=== PATIENT | female | born 1940 | race Two or more races ===

== ENCOUNTER → 2017-08-21 | Outpatient (CLI) | payer MEDICARE, OTHER ==
[~2017-08-21] VITALS: Ht 154.9 cm; Wt 67.6 kg
[2017-08-21 12:30] LABS: Basophils # (auto) 0 uL; Basophils % (auto) 0.5 % (0.0-2.0); Eosinophils # (auto) 0.1 uL; Eosinophils % (auto) 2.3 % (0.0-7.0); Hematocrit 37.1 % (36.0-46.0); Hemoglobin 12.1 g/dL (12.2-16.2); Lymphocytes # (auto) 1.1 uL; Lymphocytes % (auto) 22.4 % (10.0-50.0); Mean Corpuscular Hemoglobin 31.4 pg (28.0-32.0); Mean Corpuscular Hgb Conc. 32.7 g/dL (32.0-36.0); Mean Platelet Volume 8.1 fL (6.9-10.8); Monocytes # (auto) 0.3 uL; Monocytes % (auto) 6.4 % (0.0-12.0); Neutrophils # (auto) 3.4 uL; Neutrophils % (auto) 68.4 % (37.0-80.0); Nucleated Red Blood Cells % 0.2 %; Platelet Count (auto) 266 10^3/uL (140-450)
[2017-08-21 13:01] LABS: Albumin 3.9 g/dL (3.4-5.0); BUN/Creatinine Ratio 17.1; Bilirubin, Total 0.5 mg/dL (0.2-1.0); Calcium 8.7 mg/dL (8.5-10.1)
[2017-08-21 13:48] LABS: Urine Bilirubin Negative (Negative); Urine Blood TRACE /uL (Negative); Urine Color Yellow (Yellow); Urine Glucose Normal (Normal); Urine Ketone Negative (Negative); Urine Nitrite Negative (Negative); Urine Urobilinogen Normal (Negative); Urine pH 5.5 (5.0-8.0)
== END | disposition home or self-care (01) ==
LOC: Rad HDHVI 09:21
PROVIDERS: ATTEND Internal Medicine Cardiovascular Disease
DX: I10 Essential (primary) hypertension (principal); E78.00 Pure hypercholesterolemia, unspecified; D64.9 Anemia, unspecified; E11.9 Type 2 diabetes mellitus without complications; E03.9 Hypothyroidism, unspecified; E55.9 Vitamin D deficiency, unspecified; D51.9 Vitamin B12 deficiency anemia, unspecified; K74.1 Hepatic sclerosis; N39.0 Urinary tract infection, site not specified
CPT/HCPCS: 36415; 78452; 80053; 80061; 81003; 82306; 82607; 83036; 84439; 84443; 85025; 93017; 93306; 96374; A9500

== ENCOUNTER → 2018-06-15 | Outpatient (CLI) | payer MEDICARE, OTHER ==
[2018-06-15 12:51] LABS: Basophils # (auto) 0 uL; Basophils % (auto) 0.3 % (0.0-2.0); Eosinophils # (auto) 0 uL; Eosinophils % (auto) 0.5 % (0.0-7.0); Hematocrit 38.1 % (36.0-46.0); Hemoglobin 12.8 g/dL (12.2-16.2); Lymphocytes # (auto) 1.2 uL; Lymphocytes % (auto) 12.2 % (10.0-50.0); Mean Corpuscular Hemoglobin 32.8 pg (28.0-32.0); Mean Corpuscular Hgb Conc. 33.6 g/dL (32.0-36.0); Mean Corpuscular Volume 97.7 fL (80.0-100.0); Monocytes # (auto) 0.4 uL; Monocytes % (auto) 4.5 % (0.0-12.0); Neutrophils # (auto) 8.2 uL; Neutrophils % (auto) 82.5 % (37.0-80.0); Nucleated Red Blood Cells % 0.2 %; Platelet Count (auto) 289 10^3/uL (140-450); Red Blood Cells 3.89 10^6/uL (4.0-5.20); Red Cell Distribution Width 13.9 % (11.8-14.3); White Blood Cell 9.9 10^3/uL (4.4-10.8)
[2018-06-15 13:48] LABS: Potassium 4.1 mmol/L (3.5-5.1)
[2018-06-15 13:56] LABS: Calcium 8.7 mg/dL (8.5-10.1)
== END | disposition home or self-care (01) ==
LOC: LAB 09:43
PROVIDERS: ATTEND Internal Medicine Cardiovascular Disease
DX: D64.9 Anemia, unspecified (principal); I10 Essential (primary) hypertension
CPT/HCPCS: 36415; 80048; 85025

== ENCOUNTER → 2019-04-02 | Outpatient (CLI) | payer MEDICARE, OTHER ==
[2019-04-02 12:33] LABS: Basophils # (auto) 0 uL; Basophils % (auto) 0.7 % (0.0-2.0); Eosinophils # (auto) 0.1 uL; Eosinophils % (auto) 1.4 % (0.0-7.0); Hematocrit 36.9 % (36.0-46.0); Hemoglobin 12.5 g/dL (12.2-16.2); Lymphocytes # (auto) 1.1 uL; Lymphocytes % (auto) 19.9 % (10.0-50.0); Mean Corpuscular Hgb Conc. 33.9 g/dL (32.0-36.0); Mean Corpuscular Volume 100.3 fL (80.0-100.0); Monocytes # (auto) 0.4 uL; Monocytes % (auto) 6.3 % (0.0-12.0); Neutrophils % (auto) 71.7 % (37.0-80.0); Platelet Count (auto) 324 10^3/uL (140-450); Red Blood Cells 3.68 10^6/uL (4.0-5.20); Red Cell Distribution Width 13.4 % (11.8-14.3); White Blood Cell 5.6 10^3/uL (4.4-10.8)
[2019-04-02 12:35] LABS: BUN/Creatinine Ratio 15.2; Calcium 9.2 mg/dL (8.5-10.1); Potassium 4.4 mmol/L (3.5-5.1)
[2019-04-02 12:39] LABS: Bilirubin, Total 0.5 mg/dL (0.2-1.0); Total Protein 7.6 g/dL (6.4-8.2)
[2019-04-02 12:41] LABS: Urine Blood Negative /uL (Negative); Urine Specific Gravity 1.009 (1.001-1.035)
[2019-04-02 13:31] LABS: INR < 0.93 (0.9-1.15); Partial Thromboplastin Time 28.5 sec (23.64-32.05)
== END | disposition home or self-care (01) ==
LOC: LAB 10:45
PROVIDERS: ATTEND Internal Medicine Cardiovascular Disease
DX: E03.9 Hypothyroidism, unspecified (principal); N39.0 Urinary tract infection, site not specified; R94.2 Abnormal results of pulmonary function studies; E55.9 Vitamin D deficiency, unspecified; K90.9 Intestinal malabsorption, unspecified; D53.0 Protein deficiency anemia; R79.1 Abnormal coagulation profile; Z79.899 Other long term (current) drug therapy
CPT/HCPCS: 36415; 80053; 80061; 81003; 83036; 84443; 85025; 85302; 85306; 85576; 85610; 85730

== ENCOUNTER 2019-07-03 12:33 | Inpatient (IN) | payer MEDICARE, OTHER ==
[~2019-07-03] VITALS: Ht 165.1 cm; Wt 65.0 kg
--- NOTE | 2019-07-03 12:30 | NUR ---
PT ADMITTED TO FLOOR FROM E.R. PT ORIENTED TO UNIT AND CALL LIGHT. PT REPORTS 8/10 PAIN IN ABDOMEN AND BRIGHT RED, LIQUID STOOL X 2 DAYS. PT ENCOURAGED TO USE CALL LIGHT PRN. CALLED AND LEFT MESSAGE FOR DR ALEMAN, REQUESTING ORDERS. PT IS A DIRECT ADMIT FROM DR BHATTI OFFICE. VITALS:97.5, 02 93, HR 89, BP 149/75 RR 18. PATIENT AND FAMILY PROVIDED MED REQ AND INFO FOR ADMISSION ASSESSMENT. FAMILY AT BEDSIDE.
[2019-07-03] MEDS ORDERED: LISI40TA PO (14:03)
[2019-07-03] MEDS ORDERED: IPRAAER6 IN (14:06)
[2019-07-03] MEDS ORDERED: LEVO112T4 PO (14:06)
[2019-07-03 14:47] VITALS: BP 153/71
--- NOTE | 2019-07-03 15:00 | NUR ---
IV INSERTED RH 22 G, USING STERILE TECHNIQUE, BY CHIKI ECHAVARRIA RN. WILL START FLUIDS.
[2019-07-03] MEDS ORDERED: HYDROmorphone HCL 2 MG/ML VL IV PRN (15:30)
[2019-07-03] MEDS ORDERED: OMNIPAQUE ORAL SOLN 500ml 12mg/ml PO ONE (15:31)
[2019-07-03 15:54] LABS: Basophils # (auto) 0 uL; Basophils % (auto) 0.6 % (0.0-2.0); Eosinophils # (auto) 0 uL; Eosinophils % (auto) 0.5 % (0.0-7.0); Hematocrit 39.5 % (36.0-46.0); Hemoglobin 13.2 g/dL (12.2-16.2); Lymphocytes # (auto) 1.1 uL; Lymphocytes % (auto) 17.3 % (10.0-50.0); Mean Corpuscular Hemoglobin 32.7 pg (28.0-32.0); Mean Corpuscular Hgb Conc. 33.4 g/dL (32.0-36.0); Monocytes # (auto) 0.4 uL; Monocytes % (auto) 6.7 % (0.0-12.0); Neutrophils # (auto) 4.9 uL; Neutrophils % (auto) 74.9 % (37.0-80.0); Nucleated Red Blood Cells % 0.1 %; Platelet Count (auto) 285 10^3/uL (140-450); Red Blood Cells 4.03 10^6/uL (4.0-5.20); Red Cell Distribution Width 13.4 % (11.8-14.3); White Blood Cell 6.5 10^3/uL (4.4-10.8)
[2019-07-03 16:08] LABS: INR 0.96 (0.9-1.15); Partial Thromboplastin Time 28.3 sec (23.64-32.05)
[2019-07-03 16:20] VITALS: BP 150/80
[2019-07-03 16:35] LABS: BUN/Creatinine Ratio 15.2; Calcium 9.1 mg/dL (8.5-10.1); Potassium 4.5 mmol/L (3.5-5.1)
--- NOTE | 2019-07-03 16:44 | NUR ---
ECG DONE, ECG SHOWS SINUS RHYTHM WITH 1ST DEGREE BLOCK, AND OCCASIONAL PVC'S. HR 83 BPM. PATIENT TAKEN DOWNSTAIRS FOR CT, PRN PAIN MEDS GIVEN, WILL CONTINUE TO MONITOR.
[2019-07-03] MEDS: SODIUM CHLORIDE 0.9% 1,000 ML IV SCH (16:48)
[2019-07-03 22:00] VITALS: BP 134/62
[2019-07-04] VITALS (7 sets, daily range): BP systolic 143–154; BP diastolic 70–84
[2019-07-04] MEDS: SODIUM CHLORIDE 0.9% 1,000 ML IV SCH (01:30)
--- NOTE | 2019-07-04 07:35 | NUR ---
Opening Shift Note Assumed care of patient, awake and alert. No S/S of distress, SOB or abdomen pain reported at this time, Instructed on POC and to call for assist PRN, call light within reach, will continue to monitor for changes Q1hr and PRN.
[2019-07-04] MEDS: PANTOPRAZOLE 40 MG TAB PO SCH (10:28)
[2019-07-04] MEDS: IPRATROPIUM BROM 0.5 MG/2.5ML INH SOL NEB SCH ×2 (11:57→18:00)
[2019-07-04 14:55] LABS: Urine WBC None Seen /hpf (0 - 5)
[2019-07-04 15:04] LABS: Urine Bacteria NONE SEEN /hpf (None Seen); Urine Blood TRACE /uL (Negative); Urine Specific Gravity 1.007 (1.001-1.035)
--- NOTE | 2019-07-04 16:25 | NUR ---
GI CONSULT RECALLED LEFT MESSAGE FOR DR Carina FALL RE: GI CONSULT, CONT CARE
--- NOTE | 2019-07-04 18:25 | NUR ---
PAGED RT FOR BREATHING TX PER PT REQUEST, NO CURRENT RESPIRATORY DISTRESS NOTED, CONT CARE
--- NOTE | 2019-07-04 19:26 | NUR ---
Opening Shift Note Assumed care of patient, awake and alert x4. No S/S of distress/SOB or pain. Instructed on POC and to call for assist PRN, will continue to monitor for changes Q1hr and PRN. Call light is within reach, side rails up x2, bed is in lowest position.
--- NOTE | 2019-07-04 19:28 | NUR ---
NEW ORDERS RECEIVED PAGED DR ALEMAN REGARDING RESUMING HOME MEDICATIONS, NEW ORDERS RECEIVED TO RESUME HOME MEDICATIONS AND FOR JACK FOR OB, RBO, ENDORSED TO NIGHT RN
[2019-07-05] MEDS: IPRATROPIUM BROM 0.5 MG/2.5ML INH SOL NEB SCH ×4 (00:33→19:20)
[2019-07-05] MEDS: SODIUM CHLORIDE 0.9% 1,000 ML IV SCH ×4 (03:35→17:30)
[2019-07-05 05:10] VITALS: BP 140/73
[2019-07-05] MEDS: LEVOTHYROXINE SODIUM 112 MCG TAB PO SCH (06:16)
--- NOTE | 2019-07-05 06:52 | NUR ---
Closing Note Patient is resting in bed. No complaints of pain, SOB, or distress. Call light is within reach. Will endorse to dayshift RN.
--- NOTE | 2019-07-05 07:30 | NUR ---
Opening Shift Note Assumed care of patient, awake and alert. No S/S of distress/SOB or pain. Instructed on POC and to call for assist PRN, will continue to monitor for changes Q1hr and PRN. Fall risk precautions in place per protocol.
[2019-07-05 08:00] VITALS: BP 156/71
[2019-07-05 08:30] VITALS: BP 156/71
[2019-07-05] MEDS: PANTOPRAZOLE 40 MG TAB PO SCH (10:30)
[2019-07-05] MEDS: LISINOPRIL 20 MG TAB PO SCH (10:31)
[2019-07-05 12:30] VITALS: BP 147/69
[2019-07-05] MEDS ORDERED: GOLYTELY 4L KIT PO ONE (15:30)
[2019-07-05 15:53] LABS: Basophils # (auto) 0 uL; Basophils % (auto) 0.5 % (0.0-2.0); Eosinophils # (auto) 0.1 uL; Eosinophils % (auto) 1.1 % (0.0-7.0); Hematocrit 35.3 % (36.0-46.0); Hemoglobin 11.7 g/dL (12.2-16.2); Lymphocytes # (auto) 1.1 uL; Lymphocytes % (auto) 17.1 % (10.0-50.0); Mean Corpuscular Hemoglobin 32.6 pg (28.0-32.0); Mean Corpuscular Hgb Conc. 33.1 g/dL (32.0-36.0); Mean Corpuscular Volume 98.4 fL (80.0-100.0); Monocytes # (auto) 0.5 uL; Monocytes % (auto) 8.1 % (0.0-12.0); Neutrophils # (auto) 4.7 uL; Neutrophils % (auto) 73.2 % (37.0-80.0); Platelet Count (auto) 258 10^3/uL (140-450); Red Blood Cells 3.58 10^6/uL (4.0-5.20); White Blood Cell 6.5 10^3/uL (4.4-10.8)
[2019-07-05] MEDS: LEVOFLOXACIN 500 MG TAB PO SCH (16:02)
[2019-07-05] MEDS: metroNIDAZOLE 500 MG TAB PO SCH ×2 (16:02→21:04)
--- NOTE | 2019-07-05 16:50 | NUR ---
FAMILY AT BEDSIDE COLONOSCOPY PRE STARTED, PATIENT PROVIDED INSTRUCTIONS REGARDING GOLYTELY, INFORMED TO NOTIFY STAFF WHEN BOWELS ARE CLEAR, PT AND FAMILY VERBALIZED UNDERSTANDING, CONT CARE
[2019-07-05 17:21] VITALS: BP 147/72
--- NOTE | 2019-07-05 20:10 | NUR ---
RECEIVED PATIENT IN BED, AAOX4. NO DISTRESS NOTED. INTRODUCED MYSELF TO THE PATIENT. ORIENTATION GIVEN. MILD GENERALIZED WEAKNESS NOTED. DENIES ANY SOB. NO PAIN NOTED. POCS DISCUSSED WITH PATIENT AND SHOWED UNDERSTANDING. BED KEPT ON LOWEST POSITION. SIDE RAILS UP. CALL LIGHT/TABLE IN REACH. KEPT COMFORTABLE.
--- NOTE | 2019-07-05 20:43 | NUR ---
PATIENT JUST HAD A BM AND IS CLEAR YELLOW WITH LITTLE SEDIMENTS. ENCOURAGED TO TALE GOLYTELY ORDERED.
[2019-07-05 21:38] VITALS: BP 147/72
[2019-07-06] MEDS: IPRATROPIUM BROM 0.5 MG/2.5ML INH SOL NEB SCH ×4 (00:55→18:41)
[2019-07-06 05:00] VITALS: BP 142/69
[2019-07-06] MEDS: metroNIDAZOLE 500 MG TAB PO SCH ×3 (05:46→21:18)
[2019-07-06] MEDS: SODIUM CHLORIDE 0.9% 1,000 ML IV SCH ×3 (05:46→21:19)
[2019-07-06] MEDS: LEVOTHYROXINE SODIUM 112 MCG TAB PO SCH (05:47)
[2019-07-06 05:58] LABS: Basophils # (auto) 0 uL; Basophils % (auto) 0.4 % (0.0-2.0); Eosinophils # (auto) 0.1 uL; Eosinophils % (auto) 1.9 % (0.0-7.0); Hematocrit 30.5 % (36.0-46.0); Hemoglobin 10.6 g/dL (12.2-16.2); Lymphocytes # (auto) 0.8 uL; Lymphocytes % (auto) 19.1 % (10.0-50.0); Mean Corpuscular Hemoglobin 33.7 pg (28.0-32.0); Mean Corpuscular Hgb Conc. 34.6 g/dL (32.0-36.0); Mean Corpuscular Volume 97.3 fL (80.0-100.0); Monocytes # (auto) 0.4 uL; Monocytes % (auto) 8.4 % (0.0-12.0); Neutrophils % (auto) 70.2 % (37.0-80.0); Nucleated Red Blood Cells % 0.1 %; Platelet Count (auto) 202 10^3/uL (140-450); Red Blood Cells 3.13 10^6/uL (4.0-5.20); Red Cell Distribution Width 13.1 % (11.8-14.3); White Blood Cell 4.2 10^3/uL (4.4-10.8)
[2019-07-06] MEDS ORDERED: GOLYTELY 4L KIT PO ONE (06:00)
--- NOTE | 2019-07-06 06:42 | NUR ---
ON BED, AWAKE. STABLE. NO DISTRESS NOTED. FOR MORE CARE AND MANAGEMENT.
[2019-07-06] MEDS ORDERED: diphenhdrAMINE HCL 50 MG/1 ML VL ONE (08:32)
[2019-07-06] MEDS ORDERED: SODIUM CHLORIDE LOCK 10 ML ONE (08:32)
--- NOTE | 2019-07-06 08:45 | NUR ---
stools still significantly yellow with fine sediments, encourage to keep drinking oral prep
[2019-07-06 10:00] VITALS: BP 153/72
[2019-07-06] MEDS: LEVOFLOXACIN 500 MG TAB PO SCH (10:02)
[2019-07-06] MEDS: PANTOPRAZOLE 40 MG TAB PO SCH (10:02)
[2019-07-06] MEDS: LISINOPRIL 20 MG TAB PO SCH (10:02)
[2019-07-06 11:41] VITALS: BP 132/82
--- NOTE | 2019-07-06 12:07 | NUR ---
OFF UNIT FOR COLONOSCOPY
[2019-07-06] MEDS: fentaNYL CITRATE 100 MCG/2 ML VL ONE ×3 (12:22→12:30)
[2019-07-06] MEDS: MIDAZOLAM HCL 5 MG/ML-1ML VIAL ONE ×3 (12:22→12:30)
--- NOTE | 2019-07-06 13:20 | NUR ---
BACK FROM PROCEDURE. LUNCH TRAY PROVIDED.
[2019-07-06 14:56] VITALS: BP 147/82
[2019-07-06 17:11] VITALS: BP 145/82
--- NOTE | 2019-07-06 20:10 | NUR ---
RECEIVED PATIENT IN BED, AAOX4. NO DISTRESS NOTED. INTRODUCED MYSELF TO THE PATIENT. ORIENTATION GIVEN. MILD GENERALIZED WEAKNESS NOTED. DENIES ANY SOB. NO PAIN NOTED. PATIENT CLAIMED THAT SHE MIGHT GO HOME IN THE AM, PER MD. POCS DISCUSSED WITH PATIENT AND SHOWED UNDERSTANDING. BED KEPT ON LOWEST POSITION. SIDE RAILS UP. CALL LIGHT/TABLE IN REACH. KEPT COMFORTABLE.
[2019-07-06 22:00] VITALS: BP 129/75
--- NOTE | 2019-07-07 01:00 | NUR ---
RT NOTE PT WAS SEEN BY RT FOR HHN TX. PT TOLERATES WELL VIA MASK. NO ADVERSE REACTION NOTED. CONT ORDERED Addendum: 07/07/19 at 0246 by Khloe Olivarez RT Amended: Links added.
[2019-07-07] MEDS: IPRATROPIUM BROM 0.5 MG/2.5ML INH SOL NEB SCH ×3 (01:20→12:00)
[2019-07-07 05:00] VITALS: BP 145/78
[2019-07-07] MEDS: metroNIDAZOLE 500 MG TAB PO SCH ×2 (05:54→14:16)
[2019-07-07] MEDS: LEVOTHYROXINE SODIUM 112 MCG TAB PO SCH (05:54)
--- NOTE | 2019-07-07 06:50 | NUR ---
ON BED, ASLEEP. STABLE. NO DISTRESS NOTED. FOR MORE CARE AND MANAGEMENT.
[2019-07-07 08:22] VITALS: BP 149/75
[2019-07-07] MEDS: LISINOPRIL 20 MG TAB PO SCH (10:09)
[2019-07-07] MEDS: LEVOFLOXACIN 500 MG TAB PO SCH (10:09)
[2019-07-07] MEDS: PANTOPRAZOLE 40 MG TAB PO SCH (10:10)
[2019-07-07] MEDS: SODIUM CHLORIDE 0.9% 1,000 ML IV SCH (10:10)
[2019-07-07 12:28] VITALS: BP 146/80
--- NOTE | 2019-07-07 15:37 | NUR ---
Regular Discharge Please follow up with your primary care physician Your appointment is on . at. Phone number is: Address is: Addendum: 07/07/19 at 1538 by Monica Galaviz RN disregard
--- NOTE | 2019-07-07 15:38 | NUR ---
Discharge instructions given as ordered. Encourage to follow up with Dr. Jenkins and Dr. Myers as instructed. All questions and concerns addressed. Patient verbalized understanding. Medication reconciliation form completed and copy given to patient. IV removed with catheter intact, pressure dressing applied. Patient taken to vehicle via wheelchair with all personal belongings, accompanied by staff and family member. No distress noted at time of departure.
--- NOTE | 2019-07-07 15:43 | NUR ---
CALLED IN PRESCRIPTION FOR FLAGYL 500 MG PO QID X7 DAYS TO PATIENTS PREFERRED PHARMACY PER DR. ALEMAN D/C ORDER SPOKE TO NORMA AT [place] [id number]
== END 2019-07-07 15:40 | disposition home or self-care (01) | DRG 378 ==
LOC: WEST WING 12:33
PROVIDERS: ADMIT Internal Medicine Cardiovascular Disease; ATTEND Internal Medicine Cardiovascular Disease
PROC: 0DBM8ZX Excision of Descending Colon, Via Natural or Artificial Opening Endoscopic, Diagnostic (ICD-10-PCS; principal; 2019-07-06 12:19)
DX: K92.2 Gastrointestinal hemorrhage, unspecified (principal); E87.1 Hypo-osmolality and hyponatremia; E03.9 Hypothyroidism, unspecified; I10 Essential (primary) hypertension; J43.9 Emphysema, unspecified; K52.9 Noninfective gastroenteritis and colitis, unspecified; Z87.891 Personal history of nicotine dependence; Z85.118 Personal history of other malignant neoplasm of bronchus and lung; Z88.2 Allergy status to sulfonamides
CPT/HCPCS: 36415; 45380; 71045; 74176; 80048; 81001; 82270; 85025; 85610; 85730; 86850; 86900; 86901; 93005; 94640; G0378; J2250

== ENCOUNTER → 2019-07-14 | Outpatient (CLI) | payer MEDICARE, OTHER ==
[~2019-07-14] VITALS: Ht 30.5 cm; Wt 0.5 kg
[~2019-07-14] MED LIST: FUROSEMIDE 40 MG/4 ML VIAL IV ONE; FUROSEMIDE 40 MG/4 ML VIAL ONE; IPRAAER6 IN; LEVO112T4 PO; LISI40TA PO; POTASSIUM CHL 10 Meq TABLET PO ONE; POTASSIUM CHL 20 Meq TABLET PO ONE
[2019-07-14 10:26] VITALS: BP 157/74
[2019-07-14 10:50] VITALS: BP 152/73
--- NOTE | 2019-07-14 10:50 | NUR ---
Discharge Instructions See e-MAR for any mediations given with this visit. Patient education given on disease process. Patient verbalized understanding. Previous labs reviewed. Patient discharged in stable condition with after care instructions and follow up appointment. NOTES ADMINISTERED LASIX IVP ALONG WITH P.O. POTASSIUM. PATIENT TOLERATED WELL. NO S/S OF DISTRESS NOTED AT THIS TIME.
== END | disposition home or self-care (01) ==
LOC: CHF HDHVI 10:26
PROVIDERS: ATTEND Internal Medicine Cardiovascular Disease
DX: E87.70 Fluid overload, unspecified (principal); E03.9 Hypothyroidism, unspecified; J43.9 Emphysema, unspecified; K21.9 Gastro-esophageal reflux disease without esophagitis; I10 Essential (primary) hypertension; Z87.891 Personal history of nicotine dependence
CPT/HCPCS: 96374; G0463; J1940

== ENCOUNTER → 2019-08-16 | Outpatient (CLI) | payer MEDICARE, OTHER ==
[~2019-08-16] VITALS: Ht 154.9 cm; Wt 62.1 kg
[~2019-08-16] MED LIST changes: +ADENOSINE 52 MG in GIVE UN-DILUTED 0 ML IV ONE; +ADENOSINE 90 MG/30 ML INJ IV ONE; -FUROSEMIDE 40 MG/4 ML VIAL IV ONE; -FUROSEMIDE 40 MG/4 ML VIAL ONE; -POTASSIUM CHL 10 Meq TABLET PO ONE; -POTASSIUM CHL 20 Meq TABLET PO ONE
== END | disposition home or self-care (01) ==
LOC: Rad HDHVI 12:58
PROVIDERS: ATTEND Internal Medicine Cardiovascular Disease
DX: K92.2 Gastrointestinal hemorrhage, unspecified (principal); K52.9 Noninfective gastroenteritis and colitis, unspecified; R58 Hemorrhage, not elsewhere classified; R60.9 Edema, unspecified; R06.02 Shortness of breath; R10.9 Unspecified abdominal pain; I10 Essential (primary) hypertension; Z79.899 Other long term (current) drug therapy
CPT/HCPCS: 78452; 93005; 96374; 96375; A9500; J0153

== ENCOUNTER → 2020-06-12 | Outpatient (CLI) | payer MEDICARE, OTHER ==
[~2020-06-12] MED LIST changes: -ADENOSINE 52 MG in GIVE UN-DILUTED 0 ML IV ONE; -ADENOSINE 90 MG/30 ML INJ IV ONE; -LISI40TA PO; +LISI40TA11 PO
[2020-06-12 12:24] LABS: Basophils # (auto) 0 10 ^3/uL (0-0.2); Basophils % (auto) 0.6 % (0.0-2.0); Eosinophils # (auto) 0.1 10 ^3/uL (0-0.8); Eosinophils % (auto) 1.7 % (0.0-7.0); Hematocrit 36.1 % (36.0-46.0); Lymphocytes # (auto) 0.9 10 ^3/uL (0.4-5.4); Lymphocytes % (auto) 19.2 % (10.0-50.0); Mean Corpuscular Hgb Conc. 33.2 g/dL (32.0-36.0); Mean Corpuscular Volume 96.4 fL (80.0-100.0); Monocytes # (auto) 0.3 10 ^3/uL (0-1.3); Monocytes % (auto) 7.5 % (0.0-12.0); Neutrophils # (auto) 3.3 10 ^3/uL (1.6-8.6); Nucleated Red Blood Cells % 0.5 %; Platelet Count (auto) 301 10^3/uL (140-450); Red Blood Cells 3.74 10^6/uL (4.0-5.20); Red Cell Distribution Width 14.5 % (11.8-14.3); White Blood Cell 4.6 10^3/uL (4.4-10.8)
[2020-06-12 12:44] LABS: Potassium 4.4 mmol/L (3.5-5.1)
[2020-06-12 12:50] LABS: Free T4 (Free Thyroxine) 1.76 ng/dL (0.89-1.76)
[2020-06-12 12:53] LABS: Albumin 3.7 g/dL (3.4-5.0); Bilirubin, Total 0.5 mg/dL (0.2-1.0); Calcium 9.3 mg/dL (8.5-10.1); Total Protein 6.7 g/dL (6.4-8.2)
== END | disposition home or self-care (01) ==
LOC: Rad HDHVI 08:51
PROVIDERS: ATTEND Internal Medicine Cardiovascular Disease
DX: K57.30 Diverticulosis of large intestine without perforation or abscess without bleeding (principal); J43.9 Emphysema, unspecified; K44.9 Diaphragmatic hernia without obstruction or gangrene; I70.0 Atherosclerosis of aorta; M47.9 Spondylosis, unspecified; I10 Essential (primary) hypertension; D64.9 Anemia, unspecified; D51.3 Other dietary vitamin B12 deficiency anemia; E11.9 Type 2 diabetes mellitus without complications; E55.9 Vitamin D deficiency, unspecified; R00.2 Palpitations; R53.1 Weakness; R30.0 Dysuria; Z90.49 Acquired absence of other specified parts of digestive tract
CPT/HCPCS: 36415; 74176; 80053; 80061; 82306; 82607; 83036; 84439; 84443; 85025

== ENCOUNTER → 2020-06-19 | Outpatient (CLI) | payer MEDICARE, OTHER ==
[2020-06-19 16:01] LABS: Urine Blood Negative /uL (Negative); Urine Specific Gravity 1.007 (1.001-1.035)
== END | disposition home or self-care (01) ==
LOC: Rad HDHVI 14:31
PROVIDERS: ATTEND Internal Medicine Cardiovascular Disease
DX: N39.0 Urinary tract infection, site not specified (principal); R00.2 Palpitations; R07.89 Other chest pain; R06.02 Shortness of breath
CPT/HCPCS: 81003; 93306

== ENCOUNTER → 2020-06-22 | Outpatient (CLI) | payer MEDICARE, OTHER ==
[~2020-06-22] VITALS: Ht 154.9 cm; Wt 61.2 kg
[~2020-06-22] MED LIST changes: +ADENOSINE 51 MG in GIVE UN-DILUTED 0 ML IV ONE; +ADENOSINE 90 MG/30 ML INJ IV ONE
== END | disposition home or self-care (01) ==
LOC: Rad HDHVI 08:35
PROVIDERS: ATTEND Internal Medicine Cardiovascular Disease
DX: I10 Essential (primary) hypertension (principal); E78.5 Hyperlipidemia, unspecified; R06.02 Shortness of breath; R00.2 Palpitations; J44.9 Chronic obstructive pulmonary disease, unspecified
CPT/HCPCS: 78452; 93005; 96374; 96375; A9500; J0153

== ENCOUNTER → 2020-12-28 | Outpatient (CLI) | payer MEDICARE, OTHER ==
[~2020-12-28] MED LIST changes: -ADENOSINE 51 MG in GIVE UN-DILUTED 0 ML IV ONE; -ADENOSINE 90 MG/30 ML INJ IV ONE
[2020-12-28 11:42] LABS: Basophils # (auto) 0 10 ^3/uL (0-0.2); Basophils % (auto) 0.6 % (0.0-2.0); Eosinophils # (auto) 0.1 10 ^3/uL (0-0.8); Eosinophils % (auto) 2.1 % (0.0-7.0); Hematocrit 35.3 % (36.0-46.0); Hemoglobin 12.1 g/dL (12.2-16.2); Lymphocytes # (auto) 1.3 10 ^3/uL (0.4-5.4); Lymphocytes % (auto) 26.8 % (10.0-50.0); Mean Corpuscular Hemoglobin 32.7 pg (28.0-32.0); Mean Corpuscular Hgb Conc. 34.3 g/dL (32.0-36.0); Mean Corpuscular Volume 95.3 fL (80.0-100.0); Monocytes # (auto) 0.4 10 ^3/uL (0-1.3); Monocytes % (auto) 7.4 % (0.0-12.0); Neutrophils # (auto) 3.1 10 ^3/uL (1.6-8.6); Neutrophils % (auto) 63.1 % (37.0-80.0); Nucleated Red Blood Cells % 0.1 %; Platelet Count (auto) 278 10^3/uL (140-450); Red Blood Cells 3.71 10^6/uL (4.0-5.20); Red Cell Distribution Width 13.9 % (11.8-14.3)
[2020-12-28 11:52] LABS: Albumin 3.9 g/dL (3.4-5.0); Calcium 9.2 mg/dL (8.5-10.1); Potassium 4.4 mmol/L (3.5-5.1)
[2020-12-28 11:59] LABS: Bilirubin, Total 0.6 mg/dL (0.2-1.0); Total Protein 6.9 g/dL (6.4-8.2)
[2020-12-28 12:01] LABS: Free T4 (Free Thyroxine) 2.01 ng/dL (0.89-1.76)
== END | disposition home or self-care (01) ==
LOC: LAB 07:59
PROVIDERS: ATTEND Internal Medicine Cardiovascular Disease
DX: D51.3 Other dietary vitamin B12 deficiency anemia (principal); I10 Essential (primary) hypertension; E11.9 Type 2 diabetes mellitus without complications; E55.9 Vitamin D deficiency, unspecified; D64.9 Anemia, unspecified; R00.2 Palpitations; R53.1 Weakness; R30.0 Dysuria
CPT/HCPCS: 36415; 80053; 80061; 82306; 82607; 83036; 84439; 84443; 85025

== ENCOUNTER → 2020-12-29 | Outpatient (CLI) | payer MEDICARE, OTHER ==
[~2020-12-29] MED LIST changes: +IOHEXOL 350 MG/ML 100ML IJ ONE; +READI-CAT 2 (BARIUM SULF)(VANILLA SMOOTHIE) 450ML ONE; +SODIUM CHLORIDE 0.9% 250 ML IV ONE
[2020-12-29 09:05] VITALS: BP 149/65
[2020-12-29 10:00] VITALS: BP 152/75
[2020-12-29 11:44] LABS: Urine Blood Negative /uL (Negative)
== END | disposition home or self-care (01) ==
LOC: Rad HDHVI 08:53
PROVIDERS: ATTEND Internal Medicine Cardiovascular Disease
DX: K55.9 Vascular disorder of intestine, unspecified (principal); N39.0 Urinary tract infection, site not specified; K57.30 Diverticulosis of large intestine without perforation or abscess without bleeding; C34.90 Malignant neoplasm of unspecified part of unspecified bronchus or lung; I10 Essential (primary) hypertension; E11.9 Type 2 diabetes mellitus without complications; E55.9 Vitamin D deficiency, unspecified; D51.3 Other dietary vitamin B12 deficiency anemia; Z90.49 Acquired absence of other specified parts of digestive tract
CPT/HCPCS: 71260; 74177; 81003; 96360; G0463; J7050; Q9967

== ENCOUNTER → 2021-03-30 | Outpatient (CLI) | payer MEDICARE, OTHER ==
[~2021-03-30] MED LIST changes: -IOHEXOL 350 MG/ML 100ML IJ ONE; -READI-CAT 2 (BARIUM SULF)(VANILLA SMOOTHIE) 450ML ONE; -SODIUM CHLORIDE 0.9% 250 ML IV ONE
== END | disposition home or self-care (01) ==
LOC: Rad HDHVI 09:48
PROVIDERS: ATTEND Internal Medicine Cardiovascular Disease
DX: I25.10 Atherosclerotic heart disease of native coronary artery without angina pectoris (principal); I10 Essential (primary) hypertension
CPT/HCPCS: 93925

== ENCOUNTER 2021-07-07 17:15 | Inpatient (IN) | payer MEDICARE, OTHER ==
[~2021-07-07] VITALS: Ht 154.9 cm; Wt 55.3 kg
[2021-07-07 20:05] LABS: Basophils # (auto) 0 10 ^3/uL (0-0.2); Basophils % (auto) 1.1 % (0.0-2.0); Eosinophils # (auto) 0.1 10 ^3/uL (0-0.8); Eosinophils % (auto) 2.5 % (0.0-7.0); Hematocrit 36.4 % (36.0-46.0); Lymphocytes # (auto) 1.2 10 ^3/uL (0.4-5.4); Mean Corpuscular Hemoglobin 32.3 pg (28.0-32.0); Mean Corpuscular Hgb Conc. 33.1 g/dL (32.0-36.0); Mean Corpuscular Volume 97.8 fL (80.0-100.0); Monocytes # (auto) 0.4 10 ^3/uL (0-1.3); Monocytes % (auto) 8.4 % (0.0-12.0); Neutrophils # (auto) 2.8 10 ^3/uL (1.6-8.6); Nucleated Red Blood Cells % 0.1 %; Red Blood Cells 3.73 10^6/uL (4.0-5.20); White Blood Cell 4.6 10^3/uL (4.4-10.8)
[2021-07-07 20:21] LABS: Chloride 103 mmol/L (98-107); Potassium 4.8 mmol/L (3.5-5.1); Sodium 132 mmol/L (136-145)
[2021-07-07 20:26] LABS: Alanine Aminotransferase 18 U/L (13-56); Albumin 3.6 g/dL (3.4-5.0); Anion Gap 6 (5-15); Aspartate Aminotransferase 20 U/L (15-37); BUN/Creatinine Ratio 13.9; Blood Urea Nitrogen 16 mg/dL (7-18); Calcium 8.7 mg/dL (8.5-10.1); Carbon Dioxide 23 mmol/L (21-32); GFR African American 58 mL/min; GFR Non-African American 48 mL/min; Glucose 81 mg/dL (74-106); Magnesium 2.2 mg/dL (1.6-2.6)
[2021-07-07 20:28] LABS: Alkaline Phosphatase 58 U/L (45-117); Bilirubin, Total 0.4 mg/dL (0.2-1.0)
[2021-07-07] MEDS ORDERED: cloNIDine HCL 0.1 MG TAB PO ONE (22:30)
[2021-07-07 22:47] LABS: Urine Bacteria NONE SEEN /hpf (None Seen); Urine Blood Negative /uL (Negative); Urine Specific Gravity 1.008 (1.001-1.035); Urine WBC <1 /hpf (0 - 5)
[2021-07-08] MEDS ORDERED: MORPHINE SULFATE INJECTION 2 MG/ML SYRG IV PRN (01:15)
[2021-07-08] MEDS ORDERED: DOCUSATE SOD 100 MG CAP PO PRN (01:15)
[2021-07-08] MEDS ORDERED: hydrALAZINE HCL 20 MG/ML VL IV PRN (01:15)
[2021-07-08] MEDS ORDERED: ACETAMINOPHEN 325 MG TAB PO PRN (01:15)
[2021-07-08] MEDS ORDERED: D5W/SOD CHLO 0.9% 1,000 ML IV ONE (01:15)
[2021-07-08] MEDS ORDERED: HYDROcodone-ACET 5/325MG TAB PO PRN (01:15)
[2021-07-08] MEDS ORDERED: NITROGLYCERIN 0.4 MG SL TAB SL PRN (01:15)
[2021-07-08] MEDS ORDERED: ONDANSETRON HCL 4 MG/2 ML VIAL IV PRN (01:15)
[2021-07-08 03:59] LABS: Basophils # (auto) 0.1 10 ^3/uL (0-0.2); Basophils % (auto) 0.9 % (0.0-2.0); Eosinophils # (auto) 0.1 10 ^3/uL (0-0.8); Eosinophils % (auto) 2.3 % (0.0-7.0); Hematocrit 35.3 % (36.0-46.0); Hemoglobin 11.8 g/dL (12.2-16.2); Lymphocytes # (auto) 1.3 10 ^3/uL (0.4-5.4); Lymphocytes % (auto) 23.1 % (10.0-50.0); Mean Corpuscular Hemoglobin 32.2 pg (28.0-32.0); Mean Corpuscular Hgb Conc. 33.6 g/dL (32.0-36.0); Mean Corpuscular Volume 95.8 fL (80.0-100.0); Monocytes # (auto) 0.4 10 ^3/uL (0-1.3); Monocytes % (auto) 7.2 % (0.0-12.0); Neutrophils # (auto) 3.7 10 ^3/uL (1.6-8.6); Neutrophils % (auto) 66.5 % (37.0-80.0); Nucleated Red Blood Cells % 0.1 %; Red Blood Cells 3.68 10^6/uL (4.0-5.20); Red Cell Distribution Width 13.9 % (11.8-14.3); White Blood Cell 5.6 10^3/uL (4.4-10.8)
[2021-07-08 04:38] LABS: Albumin 3.8 g/dL (3.4-5.0); Calcium 8.9 mg/dL (8.5-10.1); Potassium 4.4 mmol/L (3.5-5.1)
[2021-07-08 04:42] LABS: BUN/Creatinine Ratio 13.4; Bilirubin, Total 0.6 mg/dL (0.2-1.0)
[2021-07-08] MEDS: FAMOTIDINE (10MG/ML) 2ML VL IV SCH (10:00)
[2021-07-08] MEDS: ZINC SULFATE 220mg CAP or TAB PO SCH (10:00)
[2021-07-08] MEDS ORDERED: ENOXAPARIN SOD 30 MG/0.3 ML SYRINGE SC SCH (10:00)
[2021-07-08] MEDS: LISINOPRIL 20 MG TAB PO SCH (10:01)
[2021-07-08] MEDS: MULTIPLE VITAMIN TAB PO SCH (10:01)
[2021-07-08] MEDS: ASCORBIC ACID 500 MG TAB PO SCH ×2 (10:01→22:31)
[2021-07-08 21:48] VITALS: BP 164/73
[2021-07-08] MEDS ORDERED: FURO20TA3 PO (22:13)
[2021-07-08] MEDS ORDERED: LISI20TA28 PO (22:13)
[2021-07-08] MEDS ORDERED: POTA10TA51 PO (22:13)
[2021-07-08] MEDS ORDERED: DONE1TAB88 PO (22:13)
[2021-07-09 05:00] VITALS: BP 137/62
[2021-07-09 06:41] LABS: Basophils # (auto) 0 10 ^3/uL (0-0.2); Basophils % (auto) 0.6 % (0.0-2.0); Eosinophils # (auto) 0.1 10 ^3/uL (0-0.8); Hematocrit 33.8 % (36.0-46.0); Hemoglobin 11.7 g/dL (12.2-16.2); Lymphocytes # (auto) 0.9 10 ^3/uL (0.4-5.4); Lymphocytes % (auto) 17.3 % (10.0-50.0); Mean Corpuscular Hemoglobin 33.4 pg (28.0-32.0); Mean Corpuscular Hgb Conc. 34.6 g/dL (32.0-36.0); Mean Corpuscular Volume 96.7 fL (80.0-100.0); Monocytes # (auto) 0.5 10 ^3/uL (0-1.3); Monocytes % (auto) 8.9 % (0.0-12.0); Neutrophils # (auto) 3.7 10 ^3/uL (1.6-8.6); Neutrophils % (auto) 71.2 % (37.0-80.0); Red Blood Cells 3.49 10^6/uL (4.0-5.20); Red Cell Distribution Width 13.4 % (11.8-14.3); White Blood Cell 5.2 10^3/uL (4.4-10.8)
[2021-07-09 07:10] LABS: Albumin 3.1 g/dL (3.4-5.0); BUN/Creatinine Ratio 13.8; Calcium 8.5 mg/dL (8.5-10.1); Potassium 4.4 mmol/L (3.5-5.1)
[2021-07-09 07:12] LABS: Bilirubin, Total 0.6 mg/dL (0.2-1.0)
[2021-07-09 08:00] VITALS: BP 145/71
[2021-07-09] MEDS: ENOXAPARIN SOD 40 MG/0.4 ML SYRINGE SC SCH (10:00)
[2021-07-09 12:00] VITALS: BP 158/94
[2021-07-09] MEDS: ZINC SULFATE 220mg CAP or TAB PO SCH (14:12)
[2021-07-09] MEDS: FAMOTIDINE (10MG/ML) 2ML VL IV SCH (14:12)
[2021-07-09] MEDS: MULTIPLE VITAMIN TAB PO SCH (14:13)
[2021-07-09] MEDS: ASCORBIC ACID 500 MG TAB PO SCH ×2 (14:14→21:13)
[2021-07-09] MEDS: LISINOPRIL 20 MG TAB PO SCH (14:15)
[2021-07-09 16:00] VITALS: BP 154/67
[2021-07-09 22:00] VITALS: BP 139/65
[2021-07-10] VITALS (10 sets, daily range): BP systolic 140–172; BP diastolic 72–87
[2021-07-10 06:22] LABS: Partial Thromboplastin Time 30.5 sec (23.6-33.0)
[2021-07-10] MEDS: ENOXAPARIN SOD 40 MG/0.4 ML SYRINGE SC SCH (08:51)
[2021-07-10] MEDS: FAMOTIDINE (10MG/ML) 2ML VL IV SCH (08:53)
[2021-07-10] MEDS: ZINC SULFATE 220mg CAP or TAB PO SCH (08:54)
[2021-07-10] MEDS: MULTIPLE VITAMIN TAB PO SCH (08:54)
[2021-07-10] MEDS: ASCORBIC ACID 500 MG TAB PO SCH ×4 (08:54→22:53)
[2021-07-10] MEDS: LISINOPRIL 20 MG TAB PO SCH (08:55)
[2021-07-10] MEDS ORDERED: LORazepam 2MG/ML-1ML VIAL IV PRN (09:15)
[2021-07-10] MEDS ORDERED: VANCOMYCIN HCL 1000 MG VL ONE (12:45)
[2021-07-10] MEDS ORDERED: fentaNYL CITRATE 100 MCG/2 ML VL ONE (12:45)
[2021-07-10] MEDS ORDERED: MIDAZOLAM HCL 2MG/2ML 2ml VIAL (1mg/ml) ONE (12:45)
[2021-07-10] MEDS ORDERED: LIDOCAINE 2%HCL (LOCAL ANESTH.) INJ 20ML MDV ONE (12:46)
[2021-07-10] MEDS ORDERED: VANCOMYCIN 1GM/250ML 250 ML IV ONE (12:46)
[2021-07-10] MEDS ORDERED: diphenhdrAMINE HCL 50 MG/1 ML VL ONE (13:30)
[2021-07-10] MEDS ORDERED: IOHEXOL 350 MG/ML 100ML IJ ONE (13:55)
[2021-07-10] MEDS ORDERED: FUROSEMIDE 20 MG/2 ML VIAL ONE (14:12)
[2021-07-10] MEDS ORDERED: GELATIN 1 SPONGE SIZE 50 TOP ONE (14:19)
[2021-07-10] MEDS: predniSONE 20 MG TAB PO SCH (16:56)
[2021-07-10 17:49] LABS: Folate (Folic Acid) 21.17 ng/mL (5.38-24)
[2021-07-10] MEDS ORDERED: ceFAZolin 1GM/50ML 50 ML IV SCH (22:00)
[2021-07-11 05:00] VITALS: BP 132/68
[2021-07-11 09:00] VITALS: BP 154/83
[2021-07-11] MEDS: cefTRIAXone 1GM/50ML D5W 50 ML IV SCH (09:25)
[2021-07-11] MEDS: FAMOTIDINE (10MG/ML) 2ML VL IV SCH (09:26)
[2021-07-11] MEDS: predniSONE 20 MG TAB PO SCH (09:27)
[2021-07-11] MEDS: ENOXAPARIN SOD 40 MG/0.4 ML SYRINGE SC SCH (09:27)
[2021-07-11] MEDS: ZINC SULFATE 220mg CAP or TAB PO SCH (09:28)
[2021-07-11] MEDS: LISINOPRIL 20 MG TAB PO SCH (09:28)
[2021-07-11] MEDS: MULTIPLE VITAMIN TAB PO SCH (09:28)
[2021-07-11] MEDS: ASCORBIC ACID 500 MG TAB PO SCH ×2 (09:28→22:48)
[2021-07-11] MEDS ORDERED: CYANOCOBALAMIN (B-12) 1000 MCG/1 ML VIAL IM ONE (10:30)
[2021-07-11] MEDS ORDERED: LEVOTHYROXINE SODIUM 112 MCG TAB PO ONE (11:15)
[2021-07-11 13:00] VITALS: BP 112/58
[2021-07-11] MEDS: IPRATROPIUM BROM 0.5 MG/2.5ML INH SOL NEB PRN ×2 (15:20→22:12)
[2021-07-11] MEDS: ALBUTEROL SULF 2.5 MG/0.5ML(0.5%) NEB SOLN NEB PRN ×2 (15:21→22:12)
[2021-07-11 16:12] VITALS: BP 112/58
[2021-07-11 16:41] VITALS: BP 141/70
[2021-07-11 22:00] VITALS: BP 156/77
[2021-07-12 04:59] VITALS: BP 135/70
[2021-07-12] MEDS ORDERED: LEVOTHYROXINE SODIUM 112 MCG TAB PO SCH (07:00)
[2021-07-12] MEDS: ALBUTEROL SULF 2.5 MG/0.5ML(0.5%) NEB SOLN NEB PRN (08:04)
[2021-07-12] MEDS: IPRATROPIUM BROM 0.5 MG/2.5ML INH SOL NEB PRN (08:04)
[2021-07-12 09:00] VITALS: BP 146/82
[2021-07-12] MEDS: cefTRIAXone 1GM/50ML D5W 50 ML IV SCH (09:00)
[2021-07-12 09:31] VITALS: BP 146/82
[2021-07-12] MEDS: ZINC SULFATE 220mg CAP or TAB PO SCH (10:00)
[2021-07-12] MEDS: predniSONE 20 MG TAB PO SCH (10:00)
[2021-07-12] MEDS: ASCORBIC ACID 500 MG TAB PO SCH (10:00)
[2021-07-12] MEDS: LISINOPRIL 20 MG TAB PO SCH (10:00)
[2021-07-12] MEDS: ENOXAPARIN SOD 40 MG/0.4 ML SYRINGE SC SCH (10:00)
[2021-07-12] MEDS ORDERED: CYANOCOBALAMIN 500 MCG TAB PO SCH (10:00)
[2021-07-12] MEDS: MULTIPLE VITAMIN TAB PO SCH (10:00)
[2021-07-16 17:06] LABS: Methylmalonic Acid 201 nmol/L (0-378)
== END 2021-07-12 13:00 | disposition home health service (06) | DRG 243 ==
LOC: ER 17:18 → TELE 07-08 01:11 → TELE-WESTW 07-08 21:29
PROVIDERS: ADMIT Nurse Practitioner Family; ATTEND Internal Medicine Cardiovascular Disease
PROC: 0JH606Z Insertion of Pacemaker, Dual Chamber into Chest Subcutaneous Tissue and Fascia, Open Approach (ICD-10-PCS; principal; 2021-07-10)
PROC: 02H63JZ Insertion of Pacemaker Lead into Right Atrium, Percutaneous Approach (ICD-10-PCS; 2021-07-10)
PROC: 02HK3JZ Insertion of Pacemaker Lead into Right Ventricle, Percutaneous Approach (ICD-10-PCS; 2021-07-10)
DX: I49.5 Sick sinus syndrome (principal); E87.1 Hypo-osmolality and hyponatremia; J44.0 Chronic obstructive pulmonary disease with (acute) lower respiratory infection; D64.9 Anemia, unspecified; E03.9 Hypothyroidism, unspecified; I10 Essential (primary) hypertension; E78.5 Hyperlipidemia, unspecified; R56.9 Unspecified convulsions; F03.90 Unspecified dementia, unspecified severity, without behavioral disturbance, psychotic disturbance, mood disturbance, and anxiety; Z20.822 Contact with and (suspected) exposure to COVID-19; J20.9 Acute bronchitis, unspecified; Z82.49 Family history of ischemic heart disease and other diseases of the circulatory system; Z87.891 Personal history of nicotine dependence; Z83.3 Family history of diabetes mellitus; Z85.118 Personal history of other malignant neoplasm of bronchus and lung; Z90.49 Acquired absence of other specified parts of digestive tract; Z88.2 Allergy status to sulfonamides
CPT/HCPCS: 33208; 36415; 70450; 70551; 71045; 80053; 80061; 81001; 82607; 82746; 83090; 83735; 84443; 84484; 85025; 85610; 85730; 87426; 93005; 93306; 93886; 94640; 97110; 97116; 97163; 97530; 99152; 99153; C1785; G0378; J0696; J2250; J3490

== ENCOUNTER → 2022-07-02 | Outpatient (CLI) | payer MEDICARE, OTHER ==
[~2022-07-02] VITALS: Ht 154.9 cm; Wt 56.2 kg
[~2022-07-02] MED LIST changes: +DONE1TAB88 PO; +FURO20TA3 PO; +LISI20TA28 PO; -LISI40TA11 PO; +POTA10TA51 PO
== END | disposition home or self-care (01) ==
LOC: Rad HDHVI 08:07
PROVIDERS: ATTEND Internal Medicine Cardiovascular Disease
DX: I25.10 Atherosclerotic heart disease of native coronary artery without angina pectoris (principal); I10 Essential (primary) hypertension; R06.02 Shortness of breath; J44.9 Chronic obstructive pulmonary disease, unspecified; E78.5 Hyperlipidemia, unspecified; F17.210 Nicotine dependence, cigarettes, uncomplicated; Z79.899 Other long term (current) drug therapy; Z95.0 Presence of cardiac pacemaker
CPT/HCPCS: 78452; 93017; 96374; A9500

== ENCOUNTER → 2023-08-12 | Outpatient (CLI) | payer MEDICARE, OTHER ==
[~2023-08-12] MED LIST changes: -LISI20TA28 PO; +LISI20TA56 PO
== END | disposition home or self-care (01) ==
LOC: Rad HDHVI 09:41
PROVIDERS: ATTEND Internal Medicine Cardiovascular Disease
DX: I35.8 Other nonrheumatic aortic valve disorders (principal); R00.0 Tachycardia, unspecified; I10 Essential (primary) hypertension; R55 Syncope and collapse
CPT/HCPCS: 93306

== ENCOUNTER → 2023-08-18 | Outpatient (CLI) | payer MEDICARE, OTHER | END | disposition home or self-care (01) | LOC: Rad HDHVI 09:54 | PROVIDERS: ATTEND Internal Medicine Cardiovascular Disease | DX: I65.23 Occlusion and stenosis of bilateral carotid arteries (principal); I10 Essential (primary) hypertension | CPT/HCPCS: 93880 ==

== ENCOUNTER → 2023-09-02 | Outpatient (CLI) | payer MEDICARE, OTHER ==
[~2023-09-02] MED LIST changes: +APIX2.5T PO; +ATO40T PO; +BUDE1AER6 IN; +ZOLP10TA6 PO
[2023-09-02 08:59] VITALS: BP 138/65; PULSE 93; RESP 16; O2SAT 92
[2023-09-02 09:23] VITALS: BP 125/60; PULSE 72; RESP 16; O2SAT 92
== END | disposition home or self-care (01) ==
LOC: CHF HDHVI 08:51
PROVIDERS: ATTEND Internal Medicine Cardiovascular Disease
DX: Z01.818 Encounter for other preprocedural examination (principal); I10 Essential (primary) hypertension; R55 Syncope and collapse
CPT/HCPCS: 93005; G0463

== ENCOUNTER 2023-09-04 08:52 | Day surgery (SDC) | payer MEDICARE, OTHER ==
[2023-09-02 10:17] LABS: Basophils # (auto) 0 10 ^3/uL (0-0.2); Basophils % (auto) 0.6 % (0.0-2.0); Eosinophils # (auto) 0.1 10 ^3/uL (0-0.8); Eosinophils % (auto) 0.8 % (0.0-7.0); Hematocrit 35.6 % (36.0-46.0); Hemoglobin 11.7 g/dL (12.2-16.2); Lymphocytes % (auto) 13.9 % (10.0-50.0); Mean Corpuscular Hemoglobin 31.6 pg (28.0-32.0); Mean Corpuscular Hgb Conc. 32.8 g/dL (32.0-36.0); Mean Corpuscular Volume 96.4 fL (80.0-100.0); Monocytes # (auto) 0.4 10 ^3/uL (0-1.3); Monocytes % (auto) 5.7 % (0.0-12.0); Neutrophils # (auto) 5.5 10 ^3/uL (1.6-8.6); Nucleated Red Blood Cells % 0.1 %; Red Blood Cells 3.69 10^6/uL (4.0-5.20); Red Cell Distribution Width 14.8 % (11.8-14.3); White Blood Cell 6.9 10^3/uL (4.4-10.8)
[2023-09-02 10:38] LABS: Chloride 102 mmol/L (98-107); Potassium 4.3 mmol/L (3.5-5.1); Sodium 136 mmol/L (136-145)
[2023-09-02 10:39] LABS: Anion Gap 9 (5-15); Calcium 9.3 mg/dL (8.5-10.1); Carbon Dioxide 25 mmol/L (20-30)
[2023-09-02 10:44] LABS: BUN/Creatinine Ratio 13.6 (10.0-20.0); Blood Urea Nitrogen 18 mg/dL (9-23); Glucose 109 mg/dL (74-106)
[2023-09-02 11:03] LABS: INR 1.02 (0.9-1.15); Prothrombin Time 10.7 sec (9.3-11.8)
[2023-09-04] VITALS (10 sets, daily range): BP systolic 102–121; BP diastolic 47–67; PULSE 70–84; RESP 13–20; TEMP 98.3; O2SAT 99–100
[~2023-09-04] VITALS: Ht 154.9 cm; Wt 56.7 kg
[2023-09-04] MEDS ORDERED: IOHEXOL 350 MG/ML 100ML IJ ONE (09:29)
[2023-09-04] MEDS ORDERED: LIDOCAINE 2%HCL (LOCAL ANESTH.) INJ 20ML MDV ONE (09:29)
[2023-09-04] MEDS ORDERED: ANGIOMAX 250 MG VIAL IV ONE (09:31)
[2023-09-04] MEDS ORDERED: fentaNYL CITRATE 100 MCG/2 ML VL ONE (09:31)
[2023-09-04] MEDS ORDERED: MIDAZOLAM HCL 2MG/2ML 2ml VIAL (1mg/ml) ONE (09:31)
[2023-09-04] MEDS ORDERED: SODIUM CHL 0.9% 0 ML ONE (09:32)
== END 2023-09-04 12:32 | disposition home or self-care (01) ==
LOC: CATH 08:52
PROVIDERS: ATTEND Internal Medicine Cardiovascular Disease
DX: R94.39 Abnormal result of other cardiovascular function study (principal); I25.10 Atherosclerotic heart disease of native coronary artery without angina pectoris; I10 Essential (primary) hypertension; E78.5 Hyperlipidemia, unspecified; Z79.899 Other long term (current) drug therapy
CPT/HCPCS: 36415; 80048; 85025; 85610; 85730; C1769; C1894; J1644; J2250; J3010; J7030; Q9967; 93458; 99152